=== PATIENT | male | born 1990 | race Caucasian/White ===

== ENCOUNTER → 2024-11-29 | Outpatient (CLI) | payer MEDICAID, SELFPAY ==
[2024-11-29 13:31] LABS: Absolute Lymphocyte Count 2.41 X10^3/uL (0.83-4.51); Absolute Neutrophil Count 2.1 X10^3/uL (2.0-7.7); Basophil# 0.05 X10^3/uL; Basophil% 0.9 % (0-1); Eosinophil# 0.39 X10^3/uL; Hematocrit 42.9 % (40-54); Hemoglobin 14.5 g/dL (13.0-16.5); Lymphocyte # 2.41 X10^3/ul (0.83-4.51); Lymphocyte % 43.3 % (19-41); Mean Corp Hgb Conc 33.8 g/dL (32-36); Mean Corpuscular Hgb 31.2 pg (27.0-32.0); Mean Corpuscular Volume 92.3 fL (80-94); Mean Platelet Vol. 9.6 fl (6.2-12.0); Monocyte# 0.57 X10^3/uL; Monocyte% 10.3 % (0-10); NRBC Flagged by Analyzer 0 % (0-5); Neutrophil # 2.13 X10^3/uL (2.7-7.7); Neutrophil % 38.3 % (47-70); Platelet Count 260 K/mm3 (150-450); RBC Distribution Width CV 12.5 % (11.6-14.6); RBC Distribution Width SD 42.5 fl (35.1-43.9); Red Blood Count 4.65 M/mm3 (4.6-6.2); White Blood Count 5.6 K/mm3 (4.4-11.0)
[2024-11-29 13:55] LABS: Amphetamine Urine NEGATIVE (<1000 ng/mL); Barbiturate Urine NEGATIVE (< 200 ng/mL); Benzodiazepine Urine NEGATIVE (< 200 ng/mL); Buprenorphine Urine PRESUMPTIVE POSITIVE (< 200 ng/mL); Cocaine Urine NEGATIVE (< 300 ng/mL); Fentanyl, Urine NEGATIVE; Methadone Urine NEGATIVE (< 300 ng/mL); Opiates Urine NEGATIVE (< 300 ng/mL); Oxycodone, Urine NEGATIVE (< 100 ng/mL); PCP Urine NEGATIVE (< 25 ng/mL); THC Urine NEGATIVE (< 50 ng/mL)
[2024-11-29 13:59] LABS: ALB/GLOB Ratio 1.7 RATIO (0.9-2.4); AST(SGOT) 51 U/L (<=37); Alanine Aminotransfer ALT/SGPT 47 U/L (<=46); Albumin, Serum 4.1 g/dL (3.5-5.0); Alkaline Phosphatase 92 U/L (40-129); Anion Gap 11 (5-15); BUN 14 mg/dL (4-19); BUN/Creat Ratio 14.4 RATIO (10-20); Carbon Dioxide 26.7 mmol/L (22.0-29.0); Chloride 101 mmol/L (96-108); Creatinine, Serum 0.98 mg/dL (0.70-1.20); EST Glomerular Filtration Rate 105 (>60); Globulin 2.4 g/dL (2.2-4.2); Glucose 96 mg/dL (70-99); HIV Nonreactive (Nonreactive); Hepatitis B Surface Antigen Nonreactive (Nonreactive); Hepatitis C Antibody REAC (Nonreactive); Protein, Total 6.4 g/dL (5.9-8.4); Sodium Level 139 mmol/L (133-145); Total Bilirubin 0.35 mg/dL (0.00-1.30)
== END | disposition home or self-care (01) ==
LOC: LAB 12:43
DX: F11.20 Opioid dependence, uncomplicated (principal)
CPT/HCPCS: 36415; 80053; 80307; 85025; 86703; 86803; 87340

== ENCOUNTER 2025-09-20 10:23 | Emergency (ER) | payer MEDICAID, SELFPAY ==
[2025-09-20 10:23] VITALS: BP 130/92; PULSE 87; RESP 18; TEMP 36.8; O2SAT 98; BMI 21.5
--- NOTE | 2025-09-20 11:26 | EX.ED.DYSGE1 ---
HPI History of Present Illness Chief Complaint: Cellulitis Narrative Narrative: Chief complaint and HPI: 34-year-old male with past medical history of polysubstance abuse presents for cellulitis of the nose. Patient states a couple days ago he had a pimple on the tip of the nose. States he popped this. States shortly after the tip of his nose became swollen, red, tender. No purulence. He denies any fever, chills, headache, ear pain, vision changes, sinus pressure, sore throat, neck pain, chest pain, shortness of breath, nausea, vomiting. He went to urgent care today and they referred him to the emergency department as it could be MRSA. Patient has no history of MRSA. Review of systems: See HPI Medications: As listed on the chart Allergies: As listed on the chart PFSH: Per chart Vital signs: As listed on the chart. Reviewed. Physical exam: Gen: A&O x3, NAD Head: Normocephalic, atraumatic Eyes: No sclera icterus, conjunctiva clear, PERRL, EOMI, no periorbital edema ENT: TMs clear BL, moist mucous membranes, posterior oropharynx unremarkable, uvula midline, tonsils not enlarged, no sublingual/submandibular swelling, patient has cellulitis to the tip of the nose-distal nose is erythematous/warm/tender and mildly swollen-no induration or fluctuance-no purulence, bilateral naris clear, no sinus tenderness Neck: Trachea midline, Full ROM, No meningismus, no lymphadenopathy CV: RRR, no murmurs, no peripheral edema Resp: Lungs CTA BL, no w/r/c Neuro: Alert, oriented, grossly intact, sensation intact Psych: Cooperative, appropriate mood and affect PFS PFS Medical History no medical history Home Medications ?Medication ?Instructions ?Recorded ?Last Taken ?Type HydrOXYzine 50 mg PO BID 08/02/17 Unknown History acetaminophen 500 mg tablet 1,000 mg PO TID 08/02/17 Unknown History aspirin 81 mg tablet,delayed 81 mg PO DAILY 08/02/17 Unknown History release (Aspir-Low) carvedilol 3.125 mg tablet (Coreg) 3.125 mg PO BID 08/02/17 Unknown History divalproex 250 mg tablet,delayed 500 mg PO BID 08/02/17 Unknown History release duloxetine 60 mg capsule,delayed 60 mg PO DAILY 08/02/17 Unknown History release lisinopril 2.5 mg tablet (Zestril) 2.5 mg PO DAILY 08/02/17 Unknown History olanzapine 20 mg tablet (Zyprexa) 20 mg PO QHS 08/02/17 Unknown History Allergy/AdvReac Type Severity Reaction Status Date / Time amoxicillin (Amoxicillin) Allergy Unknown Verified 09/20/25 10:25 Family History no significant family his Surgical History no surgical history Social History Smoking Status: Current every day smoker tobacco type: cigarettes EXAM Physical Exam Const Vital Signs: 09/20/25 10:23 Temperature 98.2 F Temperature Source Oral Pulse Rate 87 Respiratory Rate 18 Blood Pressure 130/92 H Blood Pressure Mean 104 Pulse Ox 98 Oxygen Delivery Method Room Air MDM MDM MDM Narrative Medical decision making narrative: 34-year-old male with past medical history of polysubstance abuse presents for cellulitis of the nose. Patient states a couple days ago he had a pimple on the tip of the nose. States he popped this. States shortly after the tip of his nose became swollen, red, tender. No purulence. Denies symptoms or systemic symptoms otherwise. He went to urgent care today and they referred him to the emergency department as it could be MRSA. Patient has no history of MRSA. On presentation, patient in no acute distress. Afebrile. See physical exam findings. No abscess for incision and drainage. Patient has cellulitis of the distal nose. Will place him on Keflex and Bactrim for cellulitis. Follow-up with primary care physician and ENT. Return back to ED if symptoms change or worsen. He confirmed understanding of the plan. Will give IM Toradol for pain. Otherwise [id number] ibuprofen and Tylenol as needed. Impression: 1. Cellulitis of the nose Discharge Plan Triage Chief Complaint: Cellulitis ED Provider: Jasper Powers Dx/Rx/DC Orders Prescriptions: No Action divalproex 250 MG tablet 500 mg PO BID carvedilol [Coreg] 3.125 MG tablet 3.125 mg PO BID aspirin [Aspir-Low] 81 MG tablet,delayed release (DR/EC) 81 mg PO DAILY acetaminophen 500 MG tablet 1,000 mg PO TID lisinopril [Zestril] 2.5 MG tablet 2.5 mg PO DAILY olanzapine [Zyprexa] 20 MG tablet 20 mg PO QHS duloxetine 60 MG capsule,delayed release(DR/EC) 60 mg PO DAILY HydrOXYzine 50 MG capsule 50 mg PO BID Primary Care Provider: Care Physician,No Primary Referrals: Care Physician,No Primary [Primary Care Provider, Medical] Print Language: German
[2025-09-20 11:44] VITALS: BP 130/92; PULSE 87; RESP 18; TEMP 36.8; O2SAT 98
== END 2025-09-20 11:45 | disposition home or self-care (01) ==
PROVIDERS: Emergency Provider Surgery; Visit Provider Surgery
DX: L03.211 Cellulitis of face (principal); F17.210 Nicotine dependence, cigarettes, uncomplicated
CPT/HCPCS: 96372; 99282